=== PATIENT | female | born 2000 | race Caucasian/White ===

== ENCOUNTER → 2018-03-16 14:21 | Outpatient (CLI) | payer OTHER, SELFPAY ==
[2018-03-16 21:12] LABS: Chlamydia Trachomatis by PCR Negative (Negative); Neisserai gonorrhoeae by PCR Negative (Negative); Probe Check PASS; Sample Adequacy Control PASS; Specimen Processing Control PASS
== END ==
PROVIDERS: Visit Provider Obstetrics & Gynecology
DX: Z11.3 Encounter for screening for infections with a predominantly sexual mode of transmission (principal)
CPT/HCPCS: 87491; 87591